=== PATIENT | male | born 1990 | race Two or more races ===

== ENCOUNTER 2020-05-31 22:07 | Emergency (ER) | payer MEDICAID, OTHER ==
[~2020-05-31] VITALS: Ht 172.7 cm; Wt 63.5 kg
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
--- NOTE | 2020-06-01 00:08 | NUR ---
Patient is resting comfortably in bed with eyes closed. Easily aroused. VSS
--- NOTE | 2020-06-01 03:50 | NUR ---
pt is awake, alert and orientedx 3. pt provided his full name, and SSN. ambulatory in the [address] w/ steady gaits, requesting to leave the hospital. made aware w/ a new order for discharge. IV removed. Catheter intact and site benign. Pressure and 4x4 applied to site. No bleeding noted.Patient discharged to home in stable condition. Written and verbal after care instructions given. Patient verbalizes understanding of instruction.
[2020-06-01 03:57] VITALS: BP 121/70
== END 2020-06-01 03:57 | disposition home or self-care (01) ==
LOC: ER 22:09 → EDBD 22:09 → ER 06-01 03:57
DX: Z00.00 Encounter for general adult medical examination without abnormal findings (principal)

== ENCOUNTER 2020-07-04 01:22 | Emergency (ER) | payer MEDICAID ==
[~2020-07-04] VITALS: Ht 175.3 cm; Wt 63.5 kg
[2020-07-04] MEDS ORDERED: ONDANSETRON HCL/PF 4 MG/2 ML VIAL ONE (01:29)
[2020-07-04] MEDS ORDERED: HYDROMORPHONE 1 MG/1 ML DISP.SYRIN ONE (01:29)
[2020-07-04] MEDS ORDERED: HYDROMORPHONE 1 MG/1 ML DISP.SYRIN IV ONE (01:30)
[2020-07-04] MEDS ORDERED: ONDANSETRON HCL/PF - ER 4 MG/2 ML VIAL IV ONE (01:30)
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
[2020-07-04] MEDS ORDERED: LORAZEPAM INJ 2 MG/ML VIAL ONE (02:00)
--- NOTE | 2020-07-04 02:08 | NUR ---
XRAY AT BEDSIDE
[2020-07-04] MEDS ORDERED: LORAZEPAM INJ 2 MG/ML VIAL IV ONE (02:30)
--- NOTE | 2020-07-04 07:14 | NUR ---
[employer] AT BEDSIDE
--- NOTE | 2020-07-04 09:46 | NUR ---
OFFERED FOOD. REFUSED. PLACED FOOD AT BEDSIDE
--- NOTE | 2020-07-04 11:19 | NUR ---
PT IN BED SLEEPING, NAD NOTED. BREATHING EVEN AND UNLABORED.
--- NOTE | 2020-07-04 14:32 | NUR ---
PT STILL SLEEPING. NAD NOTED. VSS
--- NOTE | 2020-07-04 15:30 | NUR ---
COMPO CASTER TALKING TO PT AT BEDSIDE.
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
--- NOTE | 2020-07-04 15:55 | NUR ---
HAYDEN spoke to Lois (patient's daughter mother) . Per Lois, Lois can shrimp picker patient around 6:30pm this afternoon after Lois gets off of work. Plan: HAYDEN to report back to the patient regarding this information.
[2020-07-04] MEDS ORDERED: ACETAMINOPHEN ES 500 MG TABLET ONE (16:11)
--- NOTE | 2020-07-04 16:24 | NUR ---
provide patient homeless resource packet and had the patient sign homeless waiver. Resources included: Substance Abuse resources provided included: [facility] Substance Abuse Self-Helpline ([facility]) ; [facility] [address] [facility]. [place] [id number] ; [place] [facility] [place] [address] [facility] [address] ; [facility] [address] [facility] [id number] ; [facility] [address] [facility] [address] ; [facility] [address] [facility] [id number] ; Evelia [facility] [address] [facility] [id number] ; [facility]stance Abuse Helpline([facility] ; [facility] ; [facility]; [facility] [place]; [facility] Jorje Sparks; [facility] [place]; [facility] [place]; [facility] [place]; [facility] [place]; Alcoholics Anonymous -[facility]V; El-Kdmb-Lwmbcvp ; Marijuana Anonymous -[facility]; Narcotics Anonymous www.na.org. Year-round shelters : [facility] [place] [address] [place] [address] ; [facility] [place] [address] [place] [address]; [place] [facility] [place] [facility]. [facility] [address] Hygiene: [facility]: [address] [place] ; [facility] [address] [facility] ; [facility] [address] [place] Trisha [place] . Food Resources: [place] [facility] at [facility]- [address] [place]; Meet Each Need wit Dignity ([facility]) [address] [facility] Hospital[facility] [place]; [facility] 4337 [facility]; [facility] 8578 [facility] Gamble[facility]. Mental Health resources provided: [facility] [address] [place] [address] ; [facility] [place] [address] [facility] [address], [place] [address] ; Serenity Brito [facility] [address] [place] [address] ; [facility] [address] [place] [address]
--- NOTE | 2020-07-04 16:25 | NUR ---
Patient is aware that Lois (patient's daughter mother) will come pick the patient up around 6:30pm. MACHINING MANAGERCLAUDIA Estrella in agreement.
[2020-07-04] MEDS ORDERED: ACETAMINOPHEN ES 500 MG TABLET PO ONE (16:30)
--- NOTE | 2020-07-04 18:33 | NUR ---
Dharmesh avelar in EDM - 07/04/20 at 1917 by ANASTACIO PER VINH GOMEZ INTAKE, ARRANGING FOR PATIENT TO BE TRANSFERRED TO [facility], AWAITING FOR CALL BACK FROM [facility] AFTER 1929 DUE TO HOSPITAL SHORT STAFFED
--- NOTE | 2020-07-04 20:17 | NUR ---
PT STATES HE WILL WAIT FOR RIDE IN THE WAITING ROOM. PT WHEELED TO WAITING ROOM VIA WHEELCHAIR IN STABLE CONDITION. CRUTCHES AND GAIT TRAINING PROVIDED TO PATIENT. Patient given written and verbal discharge instructions. Patient verbalizes understanding of instructions. Patient is ambulatory with steady gait. Refuses offer of [facility] placement. Patient given list of available shelters in surrounding area.
--- NOTE | 2020-07-04 20:17 | NUR ---
IV removed. Catheter intact and site benign. Pressure and 4x4 applied to site. No bleeding noted.
[2020-07-04 20:18] VITALS: BP 124/79
== END 2020-07-04 20:19 | disposition home or self-care (01) ==
LOC: ER 01:23
DX: S92.355A Nondisplaced fracture of fifth metatarsal bone, left foot, initial encounter for closed fracture (principal); S40.851A Superficial foreign body of right upper arm, initial encounter; S90.812A Abrasion, left foot, initial encounter; F17.210 Nicotine dependence, cigarettes, uncomplicated; Z59.0 Homelessness; V03.90XA Pedestrian on foot injured in collision with car, pick-up truck or van, unspecified whether traffic or nontraffic accident, initial encounter; Y93.89 Activity, other specified; Y92.89 Other specified places as the place of occurrence of the external cause; Y99.8 Other external cause status
CPT/HCPCS: 29515; 71045; 72170; 73060; 73090; 73590; 73600; 73630; 96374; 96375; 99285; 99406; J1170; J2060; J2405 ×2

== ENCOUNTER 2021-02-11 23:17 | Emergency (ER) | payer MEDICAID ==
[~2021-02-11] VITALS: Ht 175.3 cm; Wt 63.5 kg
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
[2021-02-11] MEDS ORDERED: OLANZAPINE 10 MG VIAL IM ONE ×2 (23:26→23:30)
--- NOTE | 2021-02-11 23:28 | NUR ---
PT MEDICATED PER ER MD ORDER.
--- NOTE | 2021-02-11 23:36 | NUR ---
OUTCOMES ANALYST AT BEDSIDE FOR BLOOD DRAW.
[2021-02-11 23:49] LABS: BASOPHILS # (AUTO) 0.1 /CMM (0.0-0.2); EOSINOPHILS % (AUTO) 0.6 % (0.0-6.0); HEMATOCRIT 47 % (39-51); HEMOGLOBIN 15.9 g/dL (13.5-17.5); LYMPHOCYTES # (AUTO) 1.9 /CMM (0.8-4.8); LYMPHOCYTES % (AUTO) 23.2 % (20.0-44.0); MEAN CORPUSCULAR HGB CONC 34 g/dl (31.0-36.0); MEAN CORPUSCULAR VOLUME 90 fL (80-96); MONOCYTES # (AUTO) 0.7 /CMM (0.1-1.30); MONOCYTES % (AUTO) 8.5 % (2.0-12.0); NEUTROPHILS # (AUTO) 5.5 /CMM (1.8-8.9); NEUTROPHILS % (AUTO) 66.7 % (43.0-81.0); PLATELET COUNT (AUTO) 299 /CMM (150-450); RED BLOOD CELL COUNT(AUTO) 5.19 MIL/uL (4.5-6.0); WHITE BLOOD COUNT (AUTO) 8.3 K/uL (4.3-11.0)
[2021-02-11 23:57] LABS: CALCIUM, SERUM 9.2 mg/dL (8.5-10.1); CARBON DIOXIDE 22 mmol/L (21-32); CHLORIDE 96 mmol/L (98-107); CREATININE 0.9 mg/dL (0.6-1.3); GLUCOSE 70 mg/dL (74-106); POTASSIUM 3.2 mmol/L (3.5-5.1); SODIUM SERUM 136 mmol/L (136-145); UREA NITROGEN, BLOOD 18 mg/dL (7-18)
[2021-02-12 00:10] LABS: ALANINE AMINOTRANSFERASE 102 U/L (12-78); ALBUMIN 4.5 g/dL (3.4-5.0); ALCOHOL, BLOOD 48 mg/dL (0-0); ALKALINE PHOSPHATASE 121 U/L (46-116); ASPARTATE AMINOTRANSFERASE 109 U/L (15-37); BILIRUBIN,DIRECT 0.4 mg/dL (0.0-0.2); BILIRUBIN,TOTAL 1.6 mg/dL (0.2-1.0); TOTAL PROTEIN, SERUM 8.9 g/dL (6.4-8.2)
[2021-02-12 00:13] LABS: ACETAMINOPHEN 0 ug/ml (10-30)
--- NOTE | 2021-02-12 01:40 | NUR ---
URINE SAMPLE COLLECTED AND SENT TO LAB.
[2021-02-12 02:01] LABS: BILIRUBIN,URINE SMALL (NEGATIVE); COLOR,URINE YELLOW (YELLOW); LEUKOCYTE ESTERASE ,URINE NEGATIVE (NEGATIVE); NITRITE, URINE NEGATIVE (NEGATIVE); PH,URINE 5.5 (5.0-8.0); PROTEIN,URINE NEGATIVE (NEGATIVE); UGLUCOSE NEGATIVE (NEGATIVE); UROBILINOGEN,URINE 0.2 EU/dL (0.2)
[2021-02-12 02:16] LABS: RBC,URINE 0-2 /HPF (0-2); WBC,URINE 0-2 /HPF (0-3)
[2021-02-12 02:17] LABS: BACTERIA,URINE None seen /HPF (None Seen); MUCUS,URINE Many /LPF (None Seen); SQUAMOUS EPITHELIAL CELL,UR Few /HPF (None Seen)
--- NOTE | 2021-02-12 04:36 | NUR ---
PT ASLEEP, NO ACUTE DISTRESS NOTED, RESP EVEN AND UNLABORED. NO PAIN OR DISCOMFORT NOTED. CALL LIGHT WITHIN REACH. 1:1 SITTER REMAINS AT BEDSIDE FOR PT SAFETY.
--- NOTE | 2021-02-12 07:30 | NUR ---
ASSESSED PT ON BED ASLEEP EASILY AROUSABLE, NOT IN RESPIRATORY DISTRESS, V/S STABLE, KEPT RESTED AND COMFORTABLE. WILL CONTINUE TO MONITOR.
--- NOTE | 2021-02-12 09:17 | NUR ---
BREAKFAST TRAY PROVIDED.
--- NOTE | 2021-02-12 09:55 | NUR ---
[facility] AT BEDSIDE.
--- NOTE | 2021-02-12 10:51 | NUR ---
Patient given written and verbal discharge instructions. Patient verbalizes understanding of instructions. Patient is ambulatory with steady gait. Refuses offer of assisted placement. Patient given list of available shelters in surrounding area.
[2021-02-12 10:52] VITALS: BP 120/61
== END 2021-02-12 10:52 | disposition home or self-care (01) ==
LOC: ER 23:21
DX: F15.121 Other stimulant abuse with intoxication delirium (principal); F19.10 Other psychoactive substance abuse, uncomplicated; E87.6 Hypokalemia; K76.9 Liver disease, unspecified; Z20.822 Contact with and (suspected) exposure to COVID-19; Z59.0 Homelessness
CPT/HCPCS: 36415; 80048; 80076; 80143; 80307; 80320; 81001; 85025; 87426; 96372; 99285; C9803; J3490; G0480